=== PATIENT | male | born 1955 | race Caucasian/White ===

== ENCOUNTER 2020-01-19 06:32 | Inpatient (IN) | payer BC, SELFPAY ==
[~2020-01-19] VITALS: Ht 172.7 cm; Wt 87.3 kg
[2020-01-19 06:39] VITALS: Ht 172.7 cm; Wt 87.3 kg
[2020-01-19 07:46] LABS: CALCIUM 8.5 mg/dL (8.5-10.1); CARBON DIOXIDE 25.8 mmol/L (21-32); CHLORIDE SERUM 108 mmol/L (98-107); CREATININE SERUM 1.7 mg/dL (0.7-1.3); GFR1 43 mL/min; GLUCOSE SERUM 84 mg/dL (74-106); SODIUM SERUM 143 mmol/L (136-145)
[2020-01-19 07:51] LABS: ALBUMIN 3.7 g/dL (3.4-5.0); ALKALINE PHOSPHATASE 99 U/L (46-116); ALT/SGPT 38 U/L (16-63); AST/SGOT 39 U/L (15-37); BILIRUBIN TOTAL 0.3 mg/dL (0.20-1.00); LACTIC DEHYDROGENASE (LDH) 151 U/L (100-190); TOTAL PROTEIN, SERUM 6.5 g/dL (6.4-8.2)
[2020-01-19 07:52] LABS: C REACTIVE PROTEIN < 0.2 mg/dL (<=0.9)
[2020-01-19 08:25] LABS: BASOPHIL % 0.1 % (0-2); PLATELET COUNT 269 x10^3mcL (130-400); RED CELL DISTRIBUTION WIDTH 15.7 % (11.5-14.5)
[2020-01-19 09:13] LABS: UA SPECIFIC GRAVITY >=1.030 (1.005-1.035); microscopic required? YES; urine erythrocyte 1+ (NEGATIVE)
[2020-01-19] MEDS ORDERED: BENAZEPRIL HYDR1 POW PO (10:16)
[2020-01-19 11:20] VITALS: BP 116/88
[2020-01-19 12:35] VITALS: BP 166/88
[2020-01-19 15:56] VITALS: BP 120/80
[2020-01-19 20:37] VITALS: BP 135/90
[2020-01-20 05:41] VITALS: BP 148/98
[2020-01-20 05:42] LABS: BASOPHIL % 0.5 % (0-2); PLATELET COUNT 193 x10^3mcL (130-400)
[2020-01-20 05:52] LABS: RED CELL DISTRIBUTION WIDTH 15.4 % (11.5-14.5)
[2020-01-20 07:59] LABS: CALCIUM 8.4 mg/dL (8.5-10.1); CREATININE SERUM 1.4 mg/dL (0.7-1.3); POTASSIUM SERUM 3.9 mmol/L (3.5-5.1)
[2020-01-20 09:01] VITALS: BP 161/102
[2020-01-20 13:48] VITALS: BP 171/112
[2020-01-20 14:00] VITALS: BP 146/100
[2020-01-20 17:30] VITALS: BP 161/109
[2020-01-20 20:27] VITALS: BP 148/100
[2020-01-21 05:35] VITALS: BP 133/99
[2020-01-21 06:39] LABS: BASOPHIL % 0.6 % (0-2); PLATELET COUNT 209 x10^3mcL (130-400)
[2020-01-21 06:59] LABS: RED CELL DISTRIBUTION WIDTH 15.5 % (11.5-14.5)
[2020-01-21 07:01] LABS: CALCIUM 8.4 mg/dL (8.5-10.1); CARBON DIOXIDE 24.8 mmol/L (21-32); CREATININE SERUM 1.3 mg/dL (0.7-1.3); POTASSIUM SERUM 3.3 mmol/L (3.5-5.1)
[2020-01-21] MEDS ORDERED: LEVOFLOXACIN500 M1 PO (08:39)
[2020-01-21 08:51] VITALS: BP 160/101
[2020-01-21] MEDS ORDERED: BACO TOP (10:14)
[2020-01-21 11:03] VITALS: BP 150/103
== END 2020-01-21 12:05 | disposition home or self-care (01) | DRG 871 ==
LOC: ED 06:32 → DU 09:58
PROVIDERS: Emergency Medicine; ADMIT Internal Medicine
DX: A41.9 Sepsis, unspecified organism (principal); J18.9 Pneumonia, unspecified organism; N39.0 Urinary tract infection, site not specified; I10 Essential (primary) hypertension; Z20.828 Contact with and (suspected) exposure to other viral communicable diseases; N40.0 Benign prostatic hyperplasia without lower urinary tract symptoms; Z88.0 Allergy status to penicillin; Z88.8 Allergy status to other drugs, medicaments and biological substances; Z79.899 Other long term (current) drug therapy
CPT/HCPCS: 36600; 83880; 85378; 87804; G0378; J0456; J0696; J1650; J7030; J7060; Q0092; U0003-CS

== ENCOUNTER 2020-01-25 16:19 | Emergency (ER) | payer BC ==
[~2020-01-25] VITALS: Ht 172.7 cm; Wt 85.7 kg
[~2020-01-25 16:19] MED LIST: BACO TOP; BENAZEPRIL HYDR1 POW PO; LEVOFLOXACIN500 M1 PO
[2020-01-25 16:37] VITALS: Ht 172.7 cm; Wt 85.7 kg
[2020-01-25 17:36] LABS: BASOPHIL % 0.3 % (0-2); PLATELET COUNT 239 x10^3mcL (130-400)
[2020-01-25 17:37] LABS: RED CELL DISTRIBUTION WIDTH 15.5 % (11.5-14.5)
[2020-01-25 17:54] LABS: CALCIUM 8.2 mg/dL (8.5-10.1); CARBON DIOXIDE 25.7 mmol/L (21-32); CREATININE SERUM 1.7 mg/dL (0.7-1.3); POTASSIUM SERUM 3.2 mmol/L (3.5-5.1)
[2020-01-25 17:58] LABS: ALBUMIN 3.6 g/dL (3.4-5.0); BILIRUBIN TOTAL 0.5 mg/dL (0.20-1.00); TOTAL PROTEIN, SERUM 6.7 g/dL (6.4-8.2)
[2020-01-25 19:24] VITALS: BP 153/93
== END 2020-01-25 19:24 | disposition home or self-care (01) ==
LOC: ED 16:19
PROVIDERS: Emergency Medicine
DX: R10.32 Left lower quadrant pain (principal); I10 Essential (primary) hypertension; Z87.442 Personal history of urinary calculi; Z88.6 Allergy status to analgesic agent; Z88.0 Allergy status to penicillin; Z88.8 Allergy status to other drugs, medicaments and biological substances
CPT/HCPCS: J3010; J7030